=== PATIENT | male | born 1990 | race Caucasian/White ===

== ENCOUNTER 2017-04-19 10:15 | Emergency (ER) | payer SELFPAY ==
[~2017-04-19] VITALS: Ht 175.3 cm; Wt 67.0 kg
[2017-04-19 10:29] VITALS: BP 146/84; PULSE 68; RESP 16; TEMP 98.5; O2SAT 98
--- NOTE | 2017-04-19 10:45 | PD ---
HPI Chief Complaint: Headache Time Seen by Provider: 10:44 Travel History International Travel<30 days: No Contact w/Intl Traveler<30days: No Traveled to known affect area: No History of Present Illness HPI 26-year-old male presents to the emergency Department with self- induced head injury which occurred last evening in his hotel room. Patient is here working as a laborer pipeline, and accidentally hit his anterior forehead in his motel room on a bar that he did not see in the closet. He denies loss of consciousness but was dazed. Patient now has 8 out of 10 headache, dizziness, and vomiting since approximately 3 AM this morning. He has photophobia. He has positional vertigo. He denies any other injury. The patient has no previous history of significant headaches. He has no known drug allergies. [facility] Social History Alcohol Use: Yes Tobacco Use: Yes Substance Use: No Allergies-Medications (Allergen,Severity, Reaction): Coded Allergies: No Known Allergies (Unverified , 04/19/17) Reported Meds & Prescriptions Reported Meds & Active Scripts Active Zofran (Ondansetron HCl) 4 Mg Tab 4 Mg PO Q6HR PRN Ibuprofen 800 Mg Tab 800 Mg PO Q8H PRN Meclizine (Meclizine HCl) 25 Mg Tab 25-50 Mg PO TID PRN Review of Systems Except as stated in HPI: all other systems reviewed are Neg General / Constitutional: No: Fever Eyes: Positive: Photophobia, No: Diploplia, Blurred Vision, Drainage, Redness, Foreign Body Sensation, Pain, Tearing, Blind Spots, Visual changes, Blindness HENT: Positive: Headaches, Vertigo, No: Lightheadedness, Sore Throat, Rhinitis , Rhinorrhea, Congestion, Nosebleed, Neck Stiffness, Neck Pain, Dental Difficulties, Earache Cardiovascular: No: Chest Pain or Discomfort Respiratory: No: Cough, Shortness of Breath, Wheezing Gastrointestinal: Positive: Nausea, Vomiting, No: Diarrhea, Abdominal Pain Genitourinary: No: Dysuria Musculoskeletal: No: Pain Skin: No Rash Neurologic: No: Weakness Psychiatric: No: Depression Endocrine: No: Polydipsia Hematologic/Lymphatic: No: Easy Bruising Physical Exam Narrative GENERAL: Patient appears in moderate distress. He wants dark room and is guarding his eyes due to photophobia. SKIN: Warm and dry. Generally normal color. Normal turgor. Patient has obvious contusion to the middle anterior upper forehead consistent with history. HEAD: Normocephalic. Tender at contusion area. No bony deformity. EYES: Pupils equal and round. No scleral icterus. No injection or drainage. Patient has mild right going rotational nystagmus. ENT: No nasal bleeding or discharge. Mucous membranes pink and moist. Pharynx is clear. Airway is patent. NECK: Trachea midline. No JVD. CARDIOVASCULAR: Regular rate and rhythm. RESPIRATORY: No accessory muscle use. Clear to auscultation. Breath sounds equal bilaterally. GASTROINTESTINAL: Abdomen soft, non-tender, nondistended. Hepatic and splenic margins not palpable. MUSCULOSKELETAL: Extremities without clubbing, cyanosis, or edema. No obvious deformities. NEUROLOGICAL: Awake and alert. No obvious cranial nerve deficits. Motor grossly within normal limits. Five out of 5 muscle strength in the arms and legs. Normal speech. PSYCHIATRIC: Appropriate mood and affect; insight and judgment normal. Data Data Last Documented VS Vital Signs Date Time Temp Pulse Resp B/P (MAP) Pulse Ox O2 Delivery O2 Flow Rate FiO2 04/19/17 12:50 61 18 135/69 (91) 100 04/19/17 10:29 98.5 Room Air Orders Orders Complete Blood Count With Diff (04/19/17 10:48) Comprehensive Metabolic Panel (04/19/17 10:48) Prothrombin Time / Inr (Pt) (04/19/17 10:48) Act Partial Throm Time (Ptt) (04/19/17 10:48) Ct Brain W/O Iv Contrast(Rout) (04/19/17 10:48) Ecg Monitoring (04/19/17 10:48) Iv Access Insert/Monitor (04/19/17 10:48) Oximetry (04/19/17 10:48) Sodium Chloride 0.9% Flush (Ns Flush) (04/19/17 11:00) Ondansetron Inj (Zofran Inj) (04/19/17 11:00) Diphenhydramine Inj (Benadryl Inj) (04/19/17 11:00) Meclizine (Antivert) (04/19/17 11:00) Morphine Inj (Morphine Inj) (04/19/17 11:00) Ed Discharge Order (04/19/17 12:04) Labs Laboratory Tests Test 04/19/17 11:20 White Blood Count 4.8 TH/MM3 Red Blood Count 4.78 MIL/MM3 Hemoglobin 14.7 GM/DL Hematocrit 43.6 % Mean Corpuscular Volume 91.2 FL Mean Corpuscular Hemoglobin 30.8 PG Mean Corpuscular Hemoglobin Concent 33.8 % Red Cell Distribution Width 13.3 % Platelet Count 172 TH/MM3 Mean Platelet Volume 9.2 FL Neutrophils (%) (Auto) 70.0 % Lymphocytes (%) (Auto) 21.6 % Monocytes (%) (Auto) 6.7 % Eosinophils (%) (Auto) 1.0 % Basophils (%) (Auto) 0.7 % Neutrophils # (Auto) 3.4 TH/MM3 Lymphocytes # (Auto) 1.0 TH/MM3 Monocytes # (Auto) 0.3 TH/MM3 Eosinophils # (Auto) 0.0 TH/MM3 Basophils # (Auto) 0.0 TH/MM3 CBC Comment DIFF FINAL Differential Comment Prothrombin Time 11.0 SEC Prothromb Time International Ratio 1.1 RATIO Activated Partial Thromboplast Time 25.6 SEC Blood Urea Nitrogen 14 MG/DL Creatinine 1.15 MG/DL Random Glucose 100 MG/DL Total Protein 7.4 GM/DL Albumin 4.2 GM/DL Calcium Level 8.9 MG/DL Alkaline Phosphatase 75 U/L Aspartate Amino Transf (AST/SGOT) 20 U/L Alanine Aminotransferase (ALT/SGPT) 25 U/L Total Bilirubin 1.1 MG/DL Sodium Level 139 MEQ/L Potassium Level 4.0 MEQ/L Chloride Level 106 MEQ/L Carbon Dioxide Level 28.7 MEQ/L Anion Gap 4 MEQ/L Estimat Glomerular Filtration Rate 77 ML/MIN [facility] Medical Decision Making Medical Screen Exam Complete: Yes Emergency Medical Condition: Yes Differential Diagnosis Facial contusion. Intracranial bleed. Concussion. Headache. Narrative Course Patient appears in mild to moderate distress but is medically stable. Labs ordered including CBC, CMP, PT PTT and INR, CT the head is ordered without contrast. IV access is obtained patient is given 25 mg diphenhydramine IV, 25 mg meclizine by mouth, 2 mg morphine IV, and 4 mg Zofran IV. Diagnosis Primary Impression: Concussion Qualified Codes: S06.0X0A - Concussion without loss of consciousness, initial encounter Additional Impressions: Vertigo Headache Qualified Codes: G44.319 - Acute post-traumatic headache, not intractable Patient Instructions: Acute Headache (ED), Benign Paroxysmal Positional Vertigo (ED), Concussion (ED), General Instructions Departure Forms: Work Release Enter return to work date: Apr 23, 2017 Additional Instructions: CT of the head is negative for acute process per radiologist. Labs are unremarkable. Patient is reassessed and found his headache to be improved down to a 1 from an 8 out of 10. Patient still has mild vertigo symptoms with movement. Patient is felt to be stable for discharge home. Patient will given meclizine 25 mg 1-2 tabs every 6 hours when necessary vertigo #20. Patient is also given ibuprofen 800 mg 3 times daily with food #30. Patient is also given Zofran 4 mg every 6 hours when necessary nausea vomiting. Patient is to rest, push fluids, with no work until Sunday. Patient can return to the ED with worsening headache, nausea, vomiting, or worsening vertigo. Med/Other Pt SpecificInfo: Prescription(s) given Scripts Ondansetron (Zofran) 4 Mg Tab 4 MG PO Q6HR Y for NAUSEA OR VOMITING, #20 TAB 0 Refills Prov: Edvin Monterroso MD 04/19/17 Ibuprofen (Ibuprofen) 800 Mg Tab 800 MG PO Q8H Y for Pain/Inflammation, #60 TAB 0 Refills Prov: Edvin Monterroso MD 04/19/17 Meclizine (Meclizine) 25 Mg Tab 25-50 MG PO TID Y for VERTIGO, #30 TAB 0 Refills Prov: Edvin Monterroso MD 04/19/17 Disposition: 01 DISCHARGE HOME Condition: Stable Brando Barker Apr 19, 2017 10:45
[2017-04-19] MEDS ORDERED: MECLIZINE HCL 25 MG TAB PO ONE (11:00)
[2017-04-19] MEDS ORDERED: SODIUM CHLORIDE 0.9% FLUSH 10 ML FLUSH IVF PRN (11:00)
[2017-04-19] MEDS ORDERED: diphenhydrAMINE HCL 50 MG/ML VIAL IVP ONE (11:00)
[2017-04-19] MEDS ORDERED: MORPHINE SULFATE 2 MG/ML INJ IV PUSH ONE (11:00)
[2017-04-19] MEDS ORDERED: ONDANSETRON HCL 4 MG/2 ML VIAL IVP ONE (11:00)
--- NOTE | 2017-04-19 11:26 | RADRPT ---
EXAM DATE/TIME: 04/19/2017 11:07 [facility] COMPARISON: No previous studies available for comparison. INDICATIONS : Hit head on metal bar yesterday now having head pain RADIATION DOSE: 35.51 CTDIvol (mGy) MEDICAL HISTORY : asthma SURGICAL HISTORY : ENCOUNTER: Initial ACUITY: 1 day PAIN SCALE: 7/10 LOCATION: cranial TECHNIQUE: Multiple contiguous axial images were obtained of the head. Using automated exposure control and adj ustment of the mA and/or kV according to patient size, radiation dose was kept as low as reasonably a chievable to obtain optimal diagnostic quality images. DICOM format image data is available electro nically for review and comparison. FINDINGS: CEREBRUM: The ventricles are normal for age. No evidence of midline shift, mass lesion, hemorrhage or acute in farction. No extra-axial fluid collections are seen. POSTERIOR FOSSA: The cerebellum and brainstem are intact. The 4th ventricle is midline. The cerebellopontine angle i s unremarkable. EXTRACRANIAL: The visualized portion of the orbits is intact. SKULL: The calvaria is intact. No evidence of skull fracture. CONCLUSION: Normal examination. Murali Boyd MD on April 19, 2017 at 11:24 Board Certified Radiologist. This report was verified electronically.
[2017-04-19 11:37] LABS: AUTOMATED NEUTROPHIL # 3.4 TH/MM3 (1.8-7.7); BASOPHIL % 0.7 % (0.0-2.0); HEMATOCRIT 43.6 % (39.0-51.0); HEMOGLOBIN 14.7 GM/DL (13.0-17.0); LYMPH % 21.6 % (9.0-44.0); MEAN CELL VOLUME 91.2 FL (80.0-100.0); MEAN CORPUSCULAR HEMOGLOBIN 30.8 PG (27.0-34.0); MEAN CORPUSCULAR HGB CONC 33.8 % (32.0-36.0); MEAN PLATELET VOLUME 9.2 FL (7.0-11.0); MONO % 6.7 % (0.0-8.0); MONOCYTE # 0.3 TH/MM3 (0-0.9); PLATELET COUNT 172 TH/MM3 (150-450); RED BLOOD COUNT 4.78 MIL/MM3 (4.50-5.90); RED CELL DISTRIBUTION WIDTH 13.3 % (11.6-17.2); WHITE BLOOD COUNT 4.8 TH/MM3 (4.0-11.0)
[2017-04-19 11:47] LABS: INTERNATIONAL NORMALIZED RATIO 1.1 RATIO
[2017-04-19 11:56] LABS: ALBUMIN 4.2 GM/DL (3.4-5.0); ALT (GPT) 25 U/L (12-78); AST (GOT) 20 U/L (15-37); BICARBONATE 28.7 MEQ/L (21.0-32.0); BLOOD UREA NITROGEN 14 MG/DL (7-18); CALCIUM 8.9 MG/DL (8.5-10.1); CHLORIDE 106 MEQ/L (98-107); CREATININE 1.15 MG/DL (0.60-1.30); GLOMERULAR FILTRATION RATE 77 ML/MIN (>89); GLUCOSE,RANDOM 100 MG/DL (74-106); SODIUM (NA) 139 MEQ/L (136-145)
[2017-04-19 11:58] LABS: ALKALINE PHOSPHATASE 75 U/L (45-117); TOTAL BILIRUBIN ADULT 1.1 MG/DL (0.2-1.0); TOTAL PROTEIN 7.4 GM/DL (6.4-8.2)
[2017-04-19] MEDS ORDERED: IBUP1TAB7 PO (12:01)
[2017-04-19] MEDS ORDERED: MECL-62 PO (12:01)
[2017-04-19] MEDS ORDERED: ZOFR4TAB PO (12:01)
[2017-04-19 12:50] VITALS: BP 135/69
== END 2017-04-19 16:46 | disposition home or self-care (01) ==
LOC: NEPD 10:15
DX: S06.0X0A Concussion without loss of consciousness, initial encounter (principal); R42 Dizziness and giddiness; G44.319 Acute post-traumatic headache, not intractable; W22.8XXA Striking against or struck by other objects, initial encounter; Y92.59 Other trade areas as the place of occurrence of the external cause; Z72.0 Tobacco use
CPT/HCPCS: 70450; 80053; 85025; 85610; 85730; 96374; 96375; 99285; J1200; J2270; J2405